=== PATIENT | female | born 2000 | race Two or more races ===

== ENCOUNTER 2020-04-25 23:51 | Outpatient (CLI) | payer OTHER ==
[2020-04-26] MEDS ORDERED: PRENATAL TABLE1 EAC1 PO (00:09)
[2020-04-26] MEDS ORDERED: ADULT LOW DOSE81 M1 PO (00:10)
== END 2020-04-26 09:49 | disposition home or self-care (01) ==
LOC: OBS/DEL 23:51
PROVIDERS: ATTEND Specialist
DX: O47.1 False labor at or after 37 completed weeks of gestation (principal); Z20.828 Contact with and (suspected) exposure to other viral communicable diseases

== ENCOUNTER 2020-05-08 06:22 | Inpatient (IN) | payer OTHER ==
[~2020-05-08] VITALS: Ht 154.9 cm; Wt 3.2 kg
[~2020-05-08 06:22] MED LIST: ADULT LOW DOSE81 M1 PO; PRENATAL TABLE1 EAC1 PO
== END 2020-05-10 15:31 | disposition home or self-care (01) | DRG 788 ==
LOC: LDR 06:22 → O/R 21:16 → OB/GYN 05-09 00:46
PROVIDERS: ADMIT Specialist; ATTEND Specialist
PROC: 10907ZC Drainage of Amniotic Fluid, Therapeutic from Products of Conception, Via Natural or Artificial Opening (ICD-10-PCS; 2020-05-08)
PROC: 4A1HXFZ Monitoring of Products of Conception, Cardiac Rhythm, External Approach (ICD-10-PCS; 2020-05-08)
PROC: 3E033VJ Introduction of Other Hormone into Peripheral Vein, Percutaneous Approach (ICD-10-PCS; 2020-05-08)
PROC: 10D00Z1 Extraction of Products of Conception, Low, Open Approach (ICD-10-PCS; principal; 2020-05-08 16:15)
DX: O33.9 Maternal care for disproportion, unspecified (principal); O24.420 Gestational diabetes mellitus in childbirth, diet controlled; O99.824 Streptococcus B carrier state complicating childbirth; Z3A.39 39 weeks gestation of pregnancy; Z37.0 Single live birth; Z20.828 Contact with and (suspected) exposure to other viral communicable diseases